=== PATIENT | male | born 1990 | race Caucasian/White ===

== ENCOUNTER 2020-06-04 07:42 | Outpatient (CLI) | payer BC, SELFPAY ==
--- NOTE | 2020-07-18 12:05 | WPDHOMESLEEP ---
Sleep Study - Home Unattended Date of Study: 06/04/20 Ordering Provider: Tristan Solis MD Interpreting Physician: Nat Thomas MD Home Sleep Study Type: Apnea Link Air Height: 1.8 m Weight: 148.325 kg Body Mass Index: 45.6 Neck Circumference (inches): 16.25 [place]: 7 Reason for Sleep Study Hypersomnolence Sleep History Fox Salazar is a 30 year old man who indicates on his sleep questionnaire that he does not see a problem with his sleep. His doctor asked him if he got sleepy during the day, he said yes, and now he is taking this test. He is overweight and has diabetes. He works swing shift. He does not feel that he has a good sleep schedule. Every week is on a different shifts. He does get sleepy during the day but attributes this to his work schedule. He wakes up during the night and has excessive sleepiness. There is no family history of sleep issues. He does not awaken from sleep feeling short of breath or having heartburn, belching or coughing. He rarely snores at night and rarely isn't loud enough that others complain about it. he occasionally has trouble sleeping with a cold. He does not wake up gasping for breath at night, does not have breathing problems at night observed by others, rarely sweats excessively at night and never notices his heart pounding or beating irregularly at night. He frequently falls asleep during the day, occasionally involuntarily, never while driving. He does not fall asleep during physical effort. He does not have loss of muscle tone was strong emotion. He denies having daytime difficulties due to his excessive sleepiness. He does not have loss of muscle tone was strong emotion, does not feel paralyzed on waking or falling asleep and does not have vivid dreamlike scenes upon awakening or going to sleep. He is never afraid to go to sleep. He does not have nightmares. He does not remember his dreams. He constantly has racing thoughts. He does not feel sad or depressed. He frequently has anxiety. He does not have muscular tension. He does not notice parts of his body jerking. He occasionally kicks at night. He denies having crawling or aching feelings in his legs at night and does not have leg pain during the night. He denies morning jaw pain and never grind his teeth during sleep. He is not bothered by pain during the day, is not awakened by pain at night, does not wake up feeling stiff in the morning with sore or achy muscles and does not have spine pain in the morning. Normal bedtime is between 9 and 10:00 p.m. falling asleep sometimes quickly sometimes longer which depends on how tired he is; He typically wakes once at night to urinate. He wakes at 8:00 a.m. feeling refreshed. On weekends, he may go to sleep between 9:00 p.m. and 12 midnight. He wakes later on weekends, between 8:00 am and 10:00 a.m. He works rotating shifts. He takes naps. A short nap is not refreshing. He occasionally has problems with sexual function, indicates that he has a rectal dysfunction Habits: never smoked tobacco. Caffeine 1 soda per day. No alcohol or recreational drugs. [facility] Past Medical History Medical History (Updated 07/18/20 @ 12:18 by Nat Thomas MD) Controlled type 2 diabetes mellitus with hyperglycemia, without long-term current use of insulin Hypersomnia Mixed hyperlipidemia Primary hypertension Shift work sleep disorder Vitamin D insufficiency Family History Family History Grandparent Diabetes mellitus Social History Social History Smoking status: Never smoker Alcohol intake: current Substance use: never Substance use type: does not use Medications Home Medications Medication Instructions Recorded Confirmed Type dulaglutide 1.5 mg/0.5 mL 1.5 mg SUB-Q WEEKLY #6 ml 02/22/20 04/23/20 Rx subcutaneous pen injector dapagliflozin 10 mg tab
[2020-07-18 12:36] VITALS: BMI 45.6
== END 2020-06-04 07:43 | disposition home or self-care (01) ==
LOC: ANHCSM 07:43
PROVIDERS: PCP Physician Assistant; Visit Provider Family Medicine
DX: G47.33 Obstructive sleep apnea (adult) (pediatric) (principal); G47.10 Hypersomnia, unspecified; E11.9 Type 2 diabetes mellitus without complications; E78.2 Mixed hyperlipidemia; E55.9 Vitamin D deficiency, unspecified; Z79.4 Long term (current) use of insulin; G47.26 Circadian rhythm sleep disorder, shift work type
CPT/HCPCS: 95806

== ENCOUNTER → 2020-10-15 04:47 | Outpatient (CLI) | payer BC, SELFPAY ==
[2020-10-15 19:57] LABS: SARS-CoV-2 RNA PCR Negative
== END ==
PROVIDERS: PCP Family Medicine; Visit Provider Internal Medicine Critical Care Medicine
DX: Z01.812 Encounter for preprocedural laboratory examination (principal); Z20.822 Contact with and (suspected) exposure to COVID-19
CPT/HCPCS: C9803; U0003; U0005

== ENCOUNTER 2020-10-17 07:18 | Outpatient (CLI) | payer BC, SELFPAY ==
--- NOTE | 2020-10-30 18:06 | WPDSLEEPSTUD ---
Sleep Study Ordering Provider: Tristan Solis MD Interpreting Physician: Nat Thomas MD Sleep Study Type: CPAP Titration Height: 1.91 m Weight: 148.325 kg Body Mass Index: 40.8 Neck Circumference (inches): 16.5 [place]: 14 Reason for Sleep Study Home sleep test Jun 04, 2021 with mild ESTELLA AHI 6.5, desaturation 86%, presents for CPAP titration Sleep History Fox Salazar is a 30 year old man who indicates on his sleep questionnaire that he does not see a problem with his sleep. His doctor referred him for a sleep evaluation as he did have excessive daytime sleepiness. HE BMI when he had the home sleep test was entered as 45.6, and now his BMI is lower, 40.8. He has diabetes. He works swing shift. He does not feel that he has a good sleep schedule. Every week he is on a different schedule. He does get sleepy during the day but attributes this to his work schedule. He wakes up during the night and has excessive sleepiness. There is no family history of sleep issues. He does not awaken from sleep feeling short of breath or having heartburn, belching or coughing. He rarely snores at night and rarely isn't loud enough that others complain about it. He occasionally has trouble sleeping with a cold. He does not wake up gasping for breath at night, does not have breathing problems at night observed by others, rarely sweats excessively at night and never notices his heart pounding or beating irregularly at night. He frequently falls asleep during the day, occasionally involuntarily, never while driving. He does not fall asleep during physical effort. He does not have loss of muscle tone was strong emotion. He denies having daytime difficulties due to his excessive sleepiness. He does not have loss of muscle tone with strong emotion, does not feel paralyzed on waking or falling asleep and does not have vivid dreamlike scenes upon awakening or going to sleep. He is never afraid to go to sleep. He does not have nightmares. He does not remember his dreams. He constantly has racing thoughts. He does not feel sad or depressed. He frequently has anxiety. He does not have muscular tension. He does not notice parts of his body jerking. He occasionally kicks at night. He denies having crawling or aching feelings in his legs at night and does not have leg pain during the night. He denies morning jaw pain and never grind his teeth during sleep. He is not bothered by pain during the day, is not awakened by pain at night, does not wake up feeling stiff in the morning with sore or achy muscles and does not have spine pain in the morning. Normal bedtime is between 9 and 10:00 p.m. falling asleep sometimes quickly, sometimes longer which depends on how tired he is; he typically wakes once at night to urinate. He wakes at 8:00 a.m. feeling refreshed. On weekends, he may go to sleep between 9:00 p.m. and 12 midnight. He wakes later on weekends, between 8:00 am and 10:00 a.m. He works rotating shifts. He takes naps. A short nap is not refreshing. He occasionally has problems with erectile dysfunction. Habits: He never smoked tobacco. Caffeine 1 soda per day. No alcohol or recreational drugs. [facility] Past Medical History Medical History (Updated 09/03/20 @ 11:38 by Tristan Solis MD) Controlled type 2 diabetes mellitus with hyperglycemia, without long-term current use of insulin Hypersomnia Male erectile dysfunction, unspecified Mixed hyperlipidemia Primary hypertension Shift work sleep disorder Vitamin D insufficiency Family History Family History Grandparent Diabetes mellitus Social History Social History Smoking status: Never smoker Alcohol intake: current Substance use: never Substance use type: does not use Medications Home Medications Medication Instructions Recorded Confirmed Type dapa
[2020-10-30 18:13] VITALS: BMI 40.8
== END 2020-10-17 07:19 | disposition home or self-care (01) ==
LOC: ANHCSM 07:18
PROVIDERS: PCP Family Medicine; Visit Provider Family Medicine
DX: G47.33 Obstructive sleep apnea (adult) (pediatric) (principal); E66.9 Obesity, unspecified; Z68.41 Body mass index [BMI] 40.0-44.9, adult
CPT/HCPCS: 95811

== ENCOUNTER 2024-04-20 15:55 | Outpatient (CLI) | payer BC, SELFPAY ==
--- NOTE | ~2024-04-20 | XR_ITS ---
EXAMINATION: XR chest 2V Exam Date/Time: 04/20/2024 16:00 CDT HISTORY: I10 - Essential (primary) hypertension Comparison: None. RESULT: Lines, tubes, and devices: None. Lungs and pleura: Exam limited by low volumes with crowding, particularly in the lateral view. No fo leanna consolidation, large pleural effusion, or large pneumothorax. Cardiomediastinal silhouette: Unremarkable given limitations of technique. Other: No acute osseous or upper abdominal finding. IMPRESSION: No acute cardiopulmonary process, within the limitations noted above. Reviewed, dictated and finalized at location K.
== END 2024-04-20 15:56 | disposition home or self-care (01) ==
PROVIDERS: PCP Family Medicine; Visit Provider Nurse Practitioner Family
DX: R07.89 Other chest pain (principal); I10 Essential (primary) hypertension
CPT/HCPCS: 71046

== ENCOUNTER 2024-04-22 07:43 | Outpatient (CLI) | payer BC, SELFPAY ==
--- NOTE | 2024-04-22 07:49 | ECG_ITS ---
Test Date: 2024-04-22 08:06:42 Measurements Intervals [place] Rate: 90 P: 42 MT: 116 QRS: 52 QRSD: 109 T: 43 QT: 368 QTc: 452 Interpretive Statements SINUS RHYTHM WITH SHORT MT INTERVAL POSSIBLE LEFT ATRIAL ENLARGEMENT BORDERLINE T WAVE ABNORMALITY- INFERIOR LEADS BORDERLINE ECG No previous ECG available for comparison Electronically Signed On 04-22-2024 08:10:07 CDT by Medardo Power D.O.
== END 2024-04-22 07:44 | disposition home or self-care (01) ==
PROVIDERS: PCP Family Medicine; Visit Provider Nurse Practitioner Family
DX: R07.89 Other chest pain (principal); I10 Essential (primary) hypertension
CPT/HCPCS: 93005

== ENCOUNTER 2024-05-31 08:53 | Outpatient (CLI) | payer BC, SELFPAY ==
--- NOTE | 2024-05-31 09:07 | ECHO_ITS ---
Patient Info Name: Fox Salazar Age: 34 years : 1990 Gender: Male Ht: 71 in Wt: 297 lbs BSA: 2.66 m2 HR: 68 bpm BP: 136 / 84 mmHg Technical Quality: Good Exam Date: 05/31/2024 9:11 AM Exam Location: Echo Lab Patient Status: Outpatient Admit Date: 05/31/2024 Staff Ordering Physician: Camila Us NP Outreach Worker: Wesley Candelario RDCS Attending Provider: Camila Us NP Exam Type: CA echo doppler color flow Study Info Indications - ABNORMAL EKG Complete two-dimensional, color flow and Doppler transthoracic echocardiogram is performed. Summary 1. Complete two-dimensional, color flow and Doppler transthoracic echocardiogram is performed. 2. Left ventricular chamber dimension is mildly enlarged. 3. Left ventricular systolic function is normal, estimated at 55-60%. 4. The left ventricular diastolic function is normal. 5. E/e' 6 is not elevated. 6. Left atrial chamber dimension is mildly enlarged. Left Ventricle E/e' 6 is not elevated. Left ventricular chamber dimension is mildly enlarged. Left ventricular systolic function is normal, estimated at 55-60%. The left ventricular diastolic function is normal. Right Ventricle Right ventricular systolic function is normal and with normal TAPSE 1.9 cm. Right ventricular chamber dimension is normal. Left Atria Left atrial chamber dimension is mildly enlarged. Right Atria Right atrial chamber dimension is normal. Aortic Valve The aortic valve is trileaflet. There is no aortic valve stenosis. There is no aortic valve regurgitation. Pulmonic Valve There is no pulmonic regurgitation. Mitral Valve There is no mitral valve stenosis. There is no mitral valve regurgitation. Tricuspid Valve There is no tricuspid valve regurgitation. Pericardium/Pleural There is no pericardial effusion. Inferior Vena Cava Normal inferior vena cava with >50% collapse upon inspiration consistent with normal right atrial pressure, 5 mmHg. Aorta The aortic root size at the sinus of Valsalva is normal. Left Ventricular Outflow Tract Name Value Normal LVOT 2D LVOT Diameter 2.4 cm LVOT Doppler LVOT Peak Gradient 4 mmHg LVOT Mean Gradient 2 mmHg LVOT VTI 18 cm LVOT VTI/AV VTI Ratio 0.8 LVOT Stroke Volume 85 ml LVOT CO 7.6 l/min LVOT CI 2.9 l/min/m2 Pulmonic Valve Name Value Normal RVOT Doppler RVOT Peak Gradient 2 mmHg PV Doppler PV Peak Gradient 3 mmHg Mitral Valve Name Value Normal MV Doppler MV Peak Gradient 3 mmHg MV Mean Gradient 1 mmHg MV Decel Cataño 450 cm/s2 MV PHT 49 ms MV Area (PHT) 4.5 cm2 4.0-5.0 MV Area (Cont Eq VTI) 3.1 cm2 MV Diastolic Function MV E Peak Velocity 76 cm/s MV A Peak Velocity 55 cm/s MV E/A 1.4 MV Decel Time 169 ms MV Annular TDI MV E/e' (Septal) 8.8 <=8.0 MV E/e' (Lateral) 5.3 <=8.0 MV E/e' (Average) 7.0 Tricuspid Valve Name Value Normal Estimated PAP/RSVP RA Pressure 5 mmHg <=5 Aorta Name Value Normal Ascending Aorta Ao Root Diameter (MM) 4.1 cm Ao Root Diam Index (MM) 1.5 cm/m2 Aortic Valve Name Value Normal AV Doppler AV Peak Velocity 112 cm/s AV Peak Gradient 5 mmHg AV Mean Gradient 3 mmHg AV VTI 24 cm AV Area (Cont Eq VTI) 3.5 cm2 >=3.0 AV Area (Cont Eq Charan) 3.9 cm2 AV Regurgitation 2D LVOT Area 4.7 cm2 Ventricles Name Value Normal LV Dimensions 2D/MM IVS Diastolic Thickness (2D) 0.9 cm 0.6-1.0 LVID Diastole (2D) 5.6 cm 4.2-5.8 LVIW Diastolic Thickness (2D) 1.1 cm 0.6-1.0 LVID Systole (2D) 3.9 cm 2.5-4.0 LVOT Diameter 2.4 cm LV Mass (2D Cubed) 231.89 g 88.00-224.00 LV Mass Index (2D Cubed) 87 g/m2 49-115 Relative Wall Thickness (2D) 0.40 LV Fractional Shortening/Ejection Fraction 2D/MM LV Fractional Shortening (2D) 32 % 25-43 LV EF (2D Teicholz) 59 % 52-72 LV Diastolic Volume (4C MOD) 179 ml LV EF (4C MOD) 51 % LV Diastolic Volume (2C MOD) 124 ml LV EF (2C MOD) 46 % LV Diastolic Volume (BP MOD) 151 ml 62-150 LV Diastolic Volume Index (BP MOD) 57 ml/m2 34-74 LV Systolic Volume (BP MOD) 79 ml 21-61 LV Systolic Volume Index (BP MOD) 30 ml/m2 11-31 LV EF (BP MOD) 48 % 52-72 LV Diastolic Length (4C) 9.3 cm LV Systolic Length (4C) 7.9 cm LV Stroke Volume (4C MOD) 91 ml Atria Name Value Normal LA Dimensions LA Dimension (MM) 3.6 cm 3.0-4.1 LA Volume (4C A-L) 70 ml LA Volume (BP A-L) 71 ml RA Dimensions RA Area (4C) 18.0 cm2 <=18.0 Report Signatures
== END 2024-05-31 08:54 | disposition home or self-care (01) ==
LOC: ANHCARD 08:55
PROVIDERS: PCP Family Medicine; Visit Provider Nurse Practitioner Family
DX: I51.7 Cardiomegaly (principal); R94.31 Abnormal electrocardiogram [ECG] [EKG]; R07.89 Other chest pain
CPT/HCPCS: 93306